=== PATIENT | female | born 1935 | race American Indian/Alaskan Native ===

== ENCOUNTER 2020-08-03 19:35 | Emergency (ER) | payer MEDICARE ==
[2020-08-03 19:47] VITALS: BP 140/60
--- NOTE | 2020-08-03 21:05 | Emergency Department Report ---
ED General Adult HPI - General Chief complaint: Skin/Abscess/Foreign Body Stated complaint: LT BREAST PAIN Time Seen by Provider: 08/03/20 21:01 Source: patient Mode of arrival: Wheelchair Limitations: No Limitations - History of Present Illness Initial comments: 85-year-old female patient with history of early dementia, diabetes, and hypertension presents to the emergency department with her daughter with reported complaints of left breast pain starting several weeks ago. Patient has undergone biopsy and imaging on an outpatient basis for this problem and is awaiting definitive results. However, the results returned to date are concerning for malignancy. Patient is scheduled to follow-up with her doctor in 2 days regarding this issue. She has been taking Tylenol with codeine for pain with limited relief. She was also recently placed on an antibiotic for surrounding erythema to the affected area, which has resolved since completing the antibiotic. No trauma to the affected area. No current radiation or chemotherapy. Denies fever, chills, bleeding, drainage, nausea, vomiting. Denies all other complaints at this time. - Related Data Previous Rx's Medication Instructions Recorded Last Taken Type Naproxen 250 mg PO BID #10 tablet 08/03/20 Unknown Rx Allergies Allergy/AdvReac Type Severity Reaction Status Date / Time No Known Allergies Allergy Verified 08/03/20 19:41 ED Review of Systems ROS: Stated complaint: LT BREAST PAIN Other details as noted in HPI Other: GENERAL: Negative for fever, chills, weight change, anorexia, fatigue. ENT: Negative for ear pain, difficulty hearing, sore throat, nasal congestion, epistaxis. CARDIOVASCULAR: Negative for chest pain, palpitations, lower extremity swelling. PULMONARY: Negative for cough, dyspnea, wheezing, orthopnea, cyanosis. GASTROINTESTINAL: Negative for abdominal pain, nausea, vomiting, diarrhea, constipation. MUSCULOSKELETAL: Negative for joint pain, joint swelling, myalgias, back pain, neck pain. NEUROLOGICAL: Negative for headache, seizure, syncope, paresthesias, weakness. INTEGUMENTARY: Positive for left breast pain. HEMATOLOGICAL: Negative for hemoptysis, hematemesis, hematochezia, hematuria. PSYCHIATRIC: Negative for hallucinations, suicidal ideation, homicidal ideation, anxiety, depression. ED Past Medical Hx - Past Medical History Previous Medical History?: Yes Hx Hypertension: Yes Hx Diabetes: Yes - Surgical History Past Surgical History?: No - Social History Smoking Status: Never Smoker Substance Use Type: None - Medications Home Medications: Home Medications Medication Instructions Recorded Confirmed Last Taken Type Naproxen 250 mg PO BID #10 tablet 08/03/20 Unknown Rx ED Physical Exam - General Limitations: No Limitations - Other Other exam information: General: Awake, appropriately interactive, no acute distress. Neck: Supple. Full range of motion intact. Cardiovascular: Normal peripheral perfusion. Pulmonary: No respiratory distress. Patient is speaking normally without use of accessory muscles. Breast: Female ragman (daughter) present. There is a golf ball sized nonmobile firm round mass to the inferior/lateral quadrant of the left breast. No overlying warmth or erythema. No necrosis. No fluctuance or purulent drainage. No nipple inversion. No overlying skin color changes. Neurological: No facial asymmetry. Speech is clear. Follows commands. Patient is alert and oriented. Musculoskeletal: Moves all four extremities spontaneously with normal range of motion. Psych: Cooperative. Appropriate mood and affect. ED Course Vital Signs 08/03/20 19:43 Temperature 98.5 F Pulse Rate 79 Respiratory 16 Rate Blood Pressure 140/60 O2 Sat by Pulse 97 Oximetry ED Medical Decision Making - Medical Decision Making Differential diagnosis including but not limited to: abscess, mastitis, cyst, malignancy Patient presents emergency department with complaints of nontraumatic left breast pain. She has undergone extensive outpatient work-up for suspected breast cancer. Her next follow-up appointment is in 2 days. Recently completed course of antibiotics with resolution of warmth/erythema. However, the pain has persisted despite Tylenol with codeine. She is afebrile, vital signs are stable. No clinical indication to suggest concomitant infection warranting further diagnostic work-up on an emergent basis at this time. Patient will be discharged home with appropriate analgesics and instructed to follow-up with her physician in 2 days as scheduled. Dose adjustment made due to patient's advanced age and history of diabetes/hypertension. Patient and family expressed understanding and are agreeable to plan of care. Strict return precautions provided. Of note, poker manager documented altered mental status and wrist pain as the reason for today's visit. Upon further interrogation, the patient's family adamantly denies any acute changes in her mental status. This was misinterpreted when the patient's family member was trying to explain to the nurse that the patient suffers from early stages of dementia, and she is not capable of providing a full history on her own. However, her mental status today is no different from her baseline, according to the family. Additionally, patient has no wrist pain. History, exam, diagnostic testing, and current condition do not suggest worrisome pathology to warrant further testing, continued ED treatment, admission, or surgical evaluation at this point. Given the low probability of a significant medical illness, it would be more likely to result in harm than benefit to perform further testing at this stage. Discussed findings, presumptive diagnosis, need for follow-up and specific signs/symptoms that should prompt immediate return to the emergency department. Instructions were explained in detail to the patient and family in addition to giving written discharge information. Patient and family expressed understanding and was given the opportunity to ask questions, all of which were satisfactorily answered prior to discharge home. Critical care attestation.: If time is entered above; I have spent that time in minutes in the direct care of this critically ill patient, excluding procedure time. ED Disposition Clinical Impression: Mass of left breast Disposition: DC-01 TO HOME OR SELFCARE Is pt being admited?: No Does the pt Need Aspirin: No Condition: Stable Instructions: Breast Tenderness Additional Instructions: Continue all medications as previously prescribed. Take Naproxen twice daily with food as needed for pain. Adequate breast support may help relieve discomfort. Follow-up with oncologist on August 05 as scheduled. Return to the emergency department immediately for new or worsening symptoms. Specifically, return to the emergency department immediately for fever, difficulty breathing, skin color changes, worsening pain, drainage, bleeding, mental status changes, dehydration, rash, or any other concerns. Prescriptions: Naproxen 250 mg PO BID #10 tablet Referrals: [facility] [Outside] - 3-5 Days Time of Disposition: 21:05
== END 2020-08-03 21:16 | disposition home or self-care (01) ==
LOC: ED 19:35
DX: N63.0 Unspecified lump in unspecified breast (principal); I10 Essential (primary) hypertension; E11.9 Type 2 diabetes mellitus without complications; Z79.899 Other long term (current) drug therapy
CPT/HCPCS: 99282